=== PATIENT | female | born 1965 | race Caucasian/White ===

== ENCOUNTER 2019-07-17 07:32 | Day surgery (SDC) | payer OTHER ==
[2019-07-17] VITALS (11 sets, daily range): BP systolic 85–100; BP diastolic 52–67
[~2019-07-17] VITALS: Ht 162.6 cm; Wt 74.4 kg
[2019-07-17] MEDS ORDERED: diphenhydrAMINE 25mg capsule PO PRN (08:05)
[2019-07-17] MEDS ORDERED: normal saline 1,000 ML IV SCH (08:05)
[2019-07-17] MEDS ORDERED: LORazepam 0.5 MG tablet PO PRN (08:05)
[2019-07-17] MEDS ORDERED: ESTR40VI2 (08:08)
[2019-07-17] MEDS ORDERED: ALPR-624 PO (08:08)
[2019-07-17] MEDS ORDERED: TIOT18CA3 (08:08)
[2019-07-17] MEDS ORDERED: ALBU8.5H8 INH (08:08)
[2019-07-17] MEDS ORDERED: TEMA30CA PO (08:08)
[2019-07-17 08:54] LABS: BASOPHILS % (AUTO) 0.4 % (0-1); EOSINOPHILS # (AUTO) 0.1 X10'3 (0-0.9); EOSINOPHILS % (AUTO) 1.5 % (0-6); HEMOGLOBIN 13.9 g/dl (12.0-16.0); LYMPHOCYTES # (AUTO) 1.3 X10'3 (1.1-4.8); LYMPHOCYTES % (AUTO) 25.9 % (21-51); MEAN CORPUSCULAR HEMOGLOBIN 29.9 PG (27.0-31.0); MEAN CORPUSCULAR VOLUME 90.5 FL (78-98); MEAN PLATELET VOLUME 8.7 FL (7.4-10.4); MONOCYTES # (AUTO) 0.3 X10'3 (0-0.9); MONOCYTES % (AUTO) 6.4 % (2-12); NEUTROPHILS # (AUTO) 3.3 X10'3 (1.8-7.7); NEUTROPHILS % (AUTO) 65.8 % (42-75); PLATELET COUNT 192 X10'3 (140-440); RED BLOOD COUNT 4.64 X10'6 (4.20-5.60); RED CELL DISTRIBUTION WIDTH 13.7 % (11.5-14.5)
[2019-07-17 09:09] LABS: ALBUMIN 3.8 G/DL (3.4-5.0); ANION GAP 8 (8-16); BLOOD UREA NITROGEN 24 MG/DL (7-18); CALCIUM 8.8 MG/DL (8.5-10.1); CHLORIDE 109 MMOL/L (99-107); GLUCOSE 99 MG/DL (70-104); POTASSIUM 4.1 MMOL/L (3.5-5.1); SODIUM 143 MMOL/L (135-145); TOTAL CARBON DIOXIDE 26.1 MMOL/L (24-32); eGFR 47 ML/MIN
[2019-07-17] MEDS ORDERED: fentaNYL/PF 50MCG/1 ML 2ML syringe ONE (09:46)
[2019-07-17] MEDS ORDERED: heparin 1,000unit/ml 10ml vial 10 ML ONE (09:46)
[2019-07-17] MEDS ORDERED: verapamil 2.5 mg/ml inj IV ONE (09:46)
[2019-07-17] MEDS ORDERED: midazolam 2 mg/2 ml injection ONE (09:46)
[2019-07-17] MEDS ORDERED: iohexol 350MG/ML 100ml bottle IV ONE (09:46)
[2019-07-17] MEDS ORDERED: nitroGLYCERIN-Tridil 50MG/D5W 250 ML IV ONE (09:46)
[2019-07-17] MEDS ORDERED: LIDOcaine 1% (10mg/ml)w/preservative injection 20ml MDV ONE (09:47)
[2019-07-17] MEDS ORDERED: ondansetron/PF 4mg/2ml inj IV PRN (10:55)
[2019-07-17] MEDS ORDERED: normal saline 1000ml 1,000 ML IV SCH (10:55)
[2019-07-17] MEDS ORDERED: HYDROcodone/acetaminophen 5mg/325mg tablet PO PRN (10:55)
[2019-07-17] MEDS ORDERED: proCHLORperazine 10 MG/2 ml inj IV PRN (11:00)
[2019-07-17] MEDS ORDERED: OXAZEpam 15mg capsule PO PRN (11:00)
[2019-07-17] MEDS ORDERED: HYDROcodone/acetaminophen 10/325mg tab PO PRN (11:00)
[2019-07-17] MEDS ORDERED: nitroGLYCERIN 0.4mg SUBLingual tab SL PRN (11:00)
[2019-07-17] MEDS ORDERED: acetaminophen 325mg tablet PO PRN (11:00)
== END 2019-07-17 15:00 | disposition home or self-care (01) ==
LOC: U 07:32 → MED 3N 07:33 → U 15:00
PROVIDERS: ATTEND Internal Medicine Interventional Cardiology
DX: R94.39 Abnormal result of other cardiovascular function study (principal); R07.9 Chest pain, unspecified; J44.9 Chronic obstructive pulmonary disease, unspecified; E78.5 Hyperlipidemia, unspecified; F41.9 Anxiety disorder, unspecified; I25.10 Atherosclerotic heart disease of native coronary artery without angina pectoris; G47.33 Obstructive sleep apnea (adult) (pediatric); Z88.6 Allergy status to analgesic agent; Z88.8 Allergy status to other drugs, medicaments and biological substances; F43.10 Post-traumatic stress disorder, unspecified; Z79.899 Other long term (current) drug therapy
CPT/HCPCS: 36415; 80048; 85025; 85610; 93005; 93458; 99152; 99153; C1769; C1894; J1644; J2001; J2250; J3010; J7030; Q0163; Q9967; A4620; A5120; A6258; J3490